=== PATIENT | male | born 1975 | race Caucasian/White ===

== ENCOUNTER 2024-04-22 13:53 | Emergency (ER) | payer BC, OTHER, SELFPAY ==
[2024-04-22 13:59] VITALS: BP 158/102
--- NOTE | 2024-04-22 14:56 | ED.SKININJ ---
HPI-Injury
General
Chief Complaint: Ear Problem
Source: patient
Exam Limitations: none
Time Seen by Provider: 04/22/24 14:23
Nursing documentation reviewed up to this point in time: agreed with
History of Present Illness-Injury
Initial Injury comments:
48 yo male with hx bilateral ear infections, tympanoplasties 15 yrs ago, decreased hearing in both ears L>R, states for past 5 days he's felt 'bubbling' in his right ear with more muffled hearing and some clear yellowish fluid drainage. Went to Pt
[facility] 2 days ago and put on Augmentin 875 BID (has had total of 5 doses).
Last 7:30 p.m. pressure in the ear got worse, he held his nose and blew and felt sudden pain, heard whistling sound and bubbling. When this has happened in the past the pain usually subsides but this time it hasn't. Pain last night was 10/10, took
Benadryl, Motrin, Melatonin and slept about 4 hours. Woke up with blood and pus on his pillow. Pain is still there now /10, comes in waves.
Denies f/c/n/v. Denies headache.
Past History
Past History
ED Past Medical History: GERD, HTN and Other (Hand infection)
Patient has exhibited threatening behavior?: No
PSI?: No
Social History
Tobacco: Non-smoker
Drug: None
Review of Systems
Review of Systems
Allergies reviewed?: Yes
All Other Systems: ROS reviewed and negative except as documented in HPI and ROS
Constitutional: Denies fever
EENT: Reports other (R ear pain and drainage)
ABD/GI: Denies nausea or vomiting
Neurological: Denies headache
Phy Exam
Physical Exam
Physical Exam:
GENERAL: No acute distress. A&Ox3.
CONSTITUTIONAL: Afebrile.
EYES: clear, conjunctivae normal
Neck: Supple
ENMT: moist mucus membranes, Pharynx nl. L TM intact with areas of scarring. R ear canal reddened and raw distally superiorly like an abrasion. No bleeding noted. Clear fluid with bubbles noted R TM as he holds his nose and blows during exam to
show me what he means. Consistent with ruptured TM. No pus noted.
RESPIRATORY: Regular respirations, nonlabored, lungs clear.
CARDIOVASCULAR: Regular rate and rhythm, no murmurs, no rubs.
MUSCULOSKELETAL: Moves with ease. Well perfused.
SKIN: Warm, dry, pink
PSYCH: Normal mood and affect. Well kept, interactive and appropriate
NEUROLOGIC: Awake, alert and oriented. No focal neurological deficits
Course
Vital Signs
Initial and Last Documented VS:
Initial Vital Signs
Temp Pulse Resp BP Pulse Ox
97.5 F 92 16 158/102 98
04/22/24 13:59 04/22/24 13:59 04/22/24 13:59 04/22/24 13:59 04/22/24 13:59
Last Documented Vital Signs
Temp Pulse Resp BP Pulse Ox
97.5 F 92 16 158/102 98
04/22/24 13:59 04/22/24 13:59 04/22/24 13:59 04/22/24 13:59 04/22/24 13:59
MDM/Problems Addressed
Differential Diagnosis Includes:
AOM, AOE, rupture TM,
MDM/Problems Addressed:
48 yo male with hx bilateral ear infections, tympanoplasties 15 yrs ago, decreased hearing in both ears L>R, states for past 5 days he's felt 'bubbling' in his right ear with more muffled hearing and some clear yellowish fluid drainage. Went to Pt
[facility] 2 days ago and put on Augmentin 875 BID (has had total of 5 doses).
Last 7:30 p.m. pressure in the ear got worse, he held his nose and blew and felt sudden pain, heard whistling sound and bubbling. When this has happened in the past the pain usually subsides but this time it hasn't. Pain last night was 03/09, took
Benadryl, Motrin, Melatonin and slept about 4 hours. Woke up with blood and pus on his pillow. Pain is still there now 12/07, comes in waves.
Denies f/c/n/v. Denies headache.
Afebrile, NAD
Clear fluid with bubbles noted R TM as he holds his nose and blows during exam to show me what he means
Referred to ENT
Rx for Tramadol sent to his pharmacy to get him through the weekend.
BP recheck 130/74
*Critical Care Note
Total Time (30-74mins, 75-104mins- exclusive of procedures): Not Applicable
ED Attending Note
-
Portions of this chart may have been created with voice recognition software.� Occasional wrong word or��sound alike� substitutions may have occurred due to the inherent limitations of voice recognition software.
Discharge Plan
Departure
Patient Disposition: Home (Routine Discharge)
Date of Disposition: 04/22/24
Time of Disposition: 14:36
Patient with high blood pressure during this ER visit?: No
Condition: Fair
Discharge Problem:
Rupture of right tympanic membrane, Otitis media
Instructions: Ruptured Eardrum (DC)
Prescriptions:
New
tramadol 50 mg tablet
50 mg PO Q8H PRN (Reason: Pain) Qty: 7 0RF
No Action
lisinopril 10 MG tablet
10 mg PO HS
esomeprazole magnesium [Nexium] 20 MG capsule,delayed release(DR/EC)
20 mg PO HS
amoxicillin-pot clavulanate 1 TABLET tablet
1 tab PO Q12 Qty: 14 0RF
doxycycline hyclate 100 MG capsule
100 mg PO Q12 Qty: 14 0RF
hydrocodone-acetaminophen 1 TABLET tablet
1 - 2 tab PO Q4HPRN PRN (Reason: pain) Qty: 12 0RF
Referrals:
Mass,Asif C., MD [Active] - Follow up in 2-3 days
Activity Restrictions/Additional Instructions:
As we discussed, keep the eardrum protected by keeping a cotton plug in your ear, avoid getting water in the ear
Continue your Augmentin as prescribed
I sent a prescription to your pharmacy for pain medication tramadol to use if Tylenol or ibuprofen does not help
Call the ENT doctor Wednesday morning first thing and make next available appointment, be sure to inform them you are here and we recommended that you be seen as soon as possible
Avoid barotrauma...for example, don't hold your nose and blow
Interventions
Interventions:
*Risk Screen - Suicide Last Done: 04/22/24 13:59
*Neglect/Abuse Screening Last Done: 04/22/24 13:59
*Nursing Disposition Last Done: 04/22/24 15:03
Discharge Date and Time
Discharge Date/Time: 04/22/24 15:06
Print Language: [place]CI[place]
== END 2024-04-22 15:06 | disposition home or self-care (01) ==
LOC: EMR 13:53
PROVIDERS: EMERGENCY PHYSICIAN Student in an Organized Health Care Education/Training Program
DX: H72.91 Unspecified perforation of tympanic membrane, right ear (principal); H66.90 Otitis media, unspecified, unspecified ear
CPT/HCPCS: 99283

== ENCOUNTER 2024-06-25 21:26 | Emergency (ER) | payer BC, OTHER, SELFPAY ==
[2024-06-25 21:28] VITALS: BP 157/105
[2024-06-25 21:45] LABS: % Eosinophils 3.4 % (0-6); % Immature Granulocytes 0.2 % (0-0.5); % Lymphocytes 39.7 % (20.5-51.1); % Monocytes 6.5 % (1.7-9.3); % Neutrophils 49.2 % (42.2-75.2); Absolute Basophils 0.1 10^3/uL (0-0.2); Absolute Eosinophils 0.3 10^3/uL (0-0.7); Absolute Lymphocytes 3.5 10^3/uL (1.2-3.4); Absolute Monocytes 0.6 10^3/uL (0.1-0.6); Absolute Neutrophils 4.3 10^3/uL (1.4-6.5); Hematocrit 42.9 % (39.0-52.0); Hemoglobin 14.8 g/dL (13.0-18.0); Mean Corp Hgb Conc. 34.5 g/dL (33.0-37.0); Mean Corpuscular Hgb 30.3 pg (27.0-31.0); Mean Corpuscular Volume 87.9 fL (80.0-94.0); Mean Platelet Volume 8.3 fL (7.4-10.4); Nucleated Red Blood Cells % 0 % (-); Platelet Count 327 10^3/uL (130-400); Red Blood Cell Count 4.88 10^6/uL (4.70-6.10); Red Cell Dist. Width 12.6 % (11.5-14.5); White Blood Cell Count 8.8 10^3/uL (4.8-10.8)
[2024-06-25 21:46] LABS: Urine Albumin Negative (Neg - Trace); Urine Bilirubin Negative (Negative); Urine Character Clear (Clear); Urine Color Yellow; Urine Glucose Negative (Negative); Urine Ketone Negative (Negative); Urine Leukocyte Negative (Negative); Urine Nitrite Negative (Negative); Urine Occult Blood Negative (Negative); Urine Urobilinogen Negative (Neg - 1+)
[2024-06-25 21:59] LABS: ALT (SGPT) 55 U/L (0-50); AST (SGOT) 34 U/L (17-59); Albumin 4.6 g/dl (3.5-5.0); Alkaline Phosphatase 59 U/L (38-126); Blood Urea Nitrogen 16 mg/dl (9-20); Calcium 9.4 mg/dl (8.4-10.2); Carbon Dioxide 29 mmol/L (22-30); Chloride 103 mmol/L (98-107); Glucose 102 mg/dl (70-99); Lipase 57 U/L (23-300); Potassium 3.9 mmol/L (3.5-5.1); Sodium 139 mmol/L (135-145); Total Bilirubin 0.5 mg/dl (0.2-1.3); Total Protein 7.2 g/dl (6.3-8.2); eGFR > 60.00
[2024-06-25 22:31] VITALS: BMI 36.3
[2024-06-25 22:36] VITALS: BP 135/80
[2024-06-25 23:00] VITALS: BP 121/71
--- NOTE | 2024-06-25 23:20 | ED.GENMED ---
History of Present Illness
General
Chief Complaint: Abdominal Pain
Source: patient
Exam Limitations: none
Time Seen by Provider: 06/25/24 22:18
Nursing documentation reviewed up to this point in time: agreed with
History of Present Illness
History of Present Illness:
48 y/o M with h/o GERD, htn
here with upper abd pain
says that for months he would randomly get a very intense cramp or muscle spasm in his upper abdomen, he could feel alump there; maybe once a month for several months
but then
says that he had N/V/D illness 6 days ago that lasted about 36 hours
it resolved but he started having some upper abd pain, cramping/bloating
he has been able to eat without any nausea/vomiting and has not had any diarrhea
he hasn't really bruno any relief of this pain
he denies fever, chills, back pain, uairnary symptoms
today he had episode of blood with BM; that has happened to him occasionally before and he assumed due t hemorrhoids
no black stool
says he takes nexium for gerd but used to be prescribed something else; he hasn't seen GI in years; never had endscopy
Past History
Past History
ED Past Medical History: GERD, HTN and Other (Hand infection)
Patient has exhibited threatening behavior?: No
PSI?: No
Social History
Tobacco: Non-smoker
Drug: None
Phy Exam
Physical Exam
Physical Exam:
GENERAL: Alert , in no apparent distress
EYE: pupils equal and reactive
NECK: Supple
ENT: o/p clr, mmm.
CARDIAC: Regular rate and rhythm .
LUNGS: Clear breath sounds bilaterally, no acute respiratory distress, no wheezes/rales/rhonchi
ABDOMEN: Soft, mild epigastric tenderness, no masses, nondistended, no r/g, no cvat, normal bowel sounds
NEUROLOGICAL: Alert and oriented, no focal neuro deficits
SKIN: Warm and dry, skin intact.
MUSCULOSKELETAL: No edema, well perfused. neg erasmo's sign
PSYCH: Normal and appropriate interaction.
Course
Orders/Labs/Results
Orders:
Orders
06/25/24 21:36
Complete Blood Count/With Diff Urgent
Comprehensive Metabolic Panel Urgent
Lipase Urgent
06/25/24 21:40
Urine Reflex Culture from UA [Urinalysis Reflex To Culture] Urgent
Date Specimen was Collected: 06/25/24
Time Specimen was Collected: 21:35
06/25/24 23:21
0.9% Sodium Chloride 1000 ml [Nss] 1,000 ml IV BOLUS
HYDROmorphone [Dilaudid] 1 mg IV NOW STA
Pantoprazole [Protonix IV] 40 mg IV NOW STA
06/25/24 23:44
Lactic Acid Urgent
06/26/24 00:00
CT Abd/Pel (IV only)-DH only Urgent
Reason For Exam: upper abd, rlq pain after n/v/d last week;
06/26/24 01:32
Electrocardiogram (*1) Urgent
Reason for Study: Abdominal Pain
EKG- Treatment ONCE
06/26/24 01:33
Ketorolac [Toradol] 15 mg IV NOW STA
06/26/24 01:45
Troponin I Urgent
Abnormal Lab Results
06/25/24
21:36
Absolute Lymphs (auto) 3.5 H 10^3/uL
(1.2-3.4)
Glucose 102 H mg/dl
(70-99)
ALT 55 H U/L
(0-50)
06/25/24 21:36
06/25/24 21:36
Vital Signs
Initial and Last Documented VS:
Initial Vital Signs
Temp Pulse Resp BP Pulse Ox
36.7 C 88 20 157/105 97
06/25/24 21:28 06/25/24 21:28 06/25/24 21:28 06/25/24 21:28 06/25/24 21:28
Last Documented Vital Signs
Temp Pulse Resp BP Pulse Ox
36.7 C 71 16 133/87 99
06/25/24 21:28 06/26/24 02:30 06/26/24 02:30 06/26/24 02:03 06/26/24 00:41
MDM/Problems Addressed
Differential Diagnosis Includes:
Gastritis, pancreatitis, colitis
MDM/Problems Addressed:
48-year-old male with a history of GERD, hypertension presents for epigastric pain and left upper quadrant pain which she has had off-and-on for the past several months lasting only a couple of hours which feels like a spasm or tightness. He says
it would come spontaneously and resolve after couple of hours. He never got it looked at. Last week about 6 days ago he had a nausea vomiting diarrhea illness. That lasted about 36 hours and since then he has had some persistent epigastric pain.
He was more intermittent and now it has been consistent for the last 2 days. He feels like it feels like a tightness in his upper abdomen and he feels like maybe there is a swelling that happens at times. It is not made worse with eating, walking,
breathing. He is not short of breath.
he looked really well initially
mild LUQ pain
mild RLQ pain
labs reviewed, minimal AST elevation
lipase normal
ct ordered
ct resulted; mod stool burdne no other findigns
pt reassessed and hasworse pain again LUQ with some spasm
ekg sinus mitra, no ischemia
trop neg
pt feels better after iv toradol
*Critical Care Note
Total Time (30-74mins, 75-104mins- exclusive of procedures): Not Applicable
ED Attending Note
-
Portions of this chart may have been created with voice recognition software.� Occasional wrong word or��sound alike� substitutions may have occurred due to the inherent limitations of voice recognition software.
Discharge Plan
Departure
Patient Disposition: Home (Routine Discharge)
Date of Disposition: 06/26/24
Time of Disposition: 02:33
Patient with high blood pressure during this ER visit?: No
Condition: Fair
Covid-19: Not Applicable
Discharge Problem:
Abdominal pain, Constipation, Gastritis
Instructions: Constipation, Adult (DC), Gastritis (DC), Abdominal Pain
Prescriptions:
New
pantoprazole [Protonix] 40 mg tablet,delayed release (DR/EC)
40 mg PO DAILY Qty: 14 0RF
No Action
lisinopril 10 MG tablet
10 mg PO HS
esomeprazole magnesium [Nexium] 20 MG capsule,delayed release(DR/EC)
20 mg PO HS
amoxicillin-pot clavulanate 1 TABLET tablet
1 tab PO Q12 Qty: 14 0RF
doxycycline hyclate 100 MG capsule
100 mg PO Q12 Qty: 14 0RF
hydrocodone-acetaminophen 1 TABLET tablet
1 - 2 tab PO Q4HPRN PRN (Reason: pain) Qty: 12 0RF
tramadol 50 mg tablet
50 mg PO Q8H PRN (Reason: Pain) Qty: 7 0RF
Referrals:
NONE,* [Family Provider] -
Activity Restrictions/Additional Instructions:
YOUR CAT SCAN DID NOT SHOW ANY OBVIOUS CAUSES FOR YOUR PAIN
YOU DO HAVE A MODERATE STOOL BURDEN IN YOUR COLON WHICH CAN CAUSE PAIN AND BLOATING
YOU CAN TRY MIRALAX ONCE OR TWICE A DAY FOR 2-3 DAYS TO HELP EMPTY YOU OUT
ALSO INSTEAD OF THE NEXIUM, TRY PANTOPRAZOLE 40 MG IN THE MORNING ON AN EMPTY STOMACH FOR 1-2 WEEKS
FOLLOW UP WITH GI FOR FURTHER EVLAUTION
RETURN FOR: BLACK STOOL, VOMITING, SEVERE PAIN, FEVER, OR ANY CONCERN.
Interventions
Interventions:
*Risk Screen - Suicide Last Done: 06/25/24 21:28
*General Assessment Last Done: 06/25/24 21:28
*Neglect/Abuse Screening Last Done: 06/25/24 21:28
ED- Fall Risk Assessment Last Done: 06/25/24 22:30
*ED COVID-19 Vaccine History Last Done: 06/25/24 21:33
*Nursing Disposition Last Done: 06/26/24 02:49
MX-Fudxas-Ikozcyfuii Assessment Last Done: 06/25/24 22:28
Discharge Date and Time
Discharge Date/Time: 06/26/24 02:50
Print Language: ARABIC
[2024-06-25] MEDS: DILAUDID 1 MG IV (23:40)
[2024-06-25] MEDS: PROTONIX IV 40 MG IV (23:40)
[2024-06-25] MEDS: NSS 1000 IV (23:40)
[2024-06-26] MEDS: TORADOL 15 MG IV (01:46)
[2024-06-26 02:03] VITALS: BP 133/87
[2024-06-26 02:28] LABS: Troponin I < 0.012 ng/ml
== END 2024-06-26 02:50 | disposition home or self-care (01) ==
LOC: EMR 21:26
PROVIDERS: Emergency Medicine; Physician Assistant; EMERGENCY PHYSICIAN Emergency Medicine
DX: K29.70 Gastritis, unspecified, without bleeding (principal); K59.00 Constipation, unspecified; I10 Essential (primary) hypertension; K21.9 Gastro-esophageal reflux disease without esophagitis
CPT/HCPCS: 96374; 96375; 96361; 99284; 74177; 80053; 81003; 83605; 83690; 84484; 85025; 93005; Q9967

== ENCOUNTER 2024-08-13 21:24 | Emergency (ER) | payer BC, OTHER, SELFPAY ==
[2024-08-13 21:28] VITALS: BP 167/107
[2024-08-13 21:48] LABS: % Basophils 0.9 % (0-2); % Eosinophils 3.1 % (0-6); % Immature Granulocytes 0.3 % (0-0.5); % Lymphocytes 27.8 % (20.5-51.1); % Neutrophils 60.9 % (42.2-75.2); Absolute Basophils 0.1 10^3/uL (0-0.2); Absolute Eosinophils 0.2 10^3/uL (0-0.7); Absolute Lymphocytes 1.9 10^3/uL (1.2-3.4); Absolute Monocytes 0.5 10^3/uL (0.1-0.6); Absolute Neutrophils 4.2 10^3/uL (1.4-6.5); Hematocrit 42.1 % (39.0-52.0); Hemoglobin 14.8 g/dL (13.0-18.0); Mean Corp Hgb Conc. 35.2 g/dL (33.0-37.0); Mean Corpuscular Hgb 30.5 pg (27.0-31.0); Mean Corpuscular Volume 86.6 fL (80.0-94.0); Mean Platelet Volume 8.5 fL (7.4-10.4); Nucleated Red Blood Cells % 0 % (-); Platelet Count 302 10^3/uL (130-400); Red Blood Cell Count 4.86 10^6/uL (4.70-6.10); Red Cell Dist. Width 12.3 % (11.5-14.5); White Blood Cell Count 6.9 10^3/uL (4.8-10.8)
[2024-08-13 22:03] LABS: ALT (SGPT) 45 U/L (0-50); AST (SGOT) 34 U/L (17-59); Albumin 4.7 g/dl (3.5-5.0); Alkaline Phosphatase 70 U/L (38-126); Blood Urea Nitrogen 12 mg/dl (9-20); Calcium 9.7 mg/dl (8.4-10.2); Carbon Dioxide 27 mmol/L (22-30); Chloride 102 mmol/L (98-107); Glucose 118 mg/dl (70-99); Potassium 3.9 mmol/L (3.5-5.1); Sodium 138 mmol/L (135-145); Total Bilirubin 0.6 mg/dl (0.2-1.3); Total Protein 7.3 g/dl (6.3-8.2); eGFR > 60.00
[2024-08-13 22:12] LABS: Troponin I < 0.012 ng/ml
--- NOTE | 2024-08-13 22:51 | ED.GENMED ---
History of Present Illness
General
Chief Complaint: Chest Pain
Source: patient
Exam Limitations: none
Time Seen by Provider: 08/13/24 22:50
Nursing documentation reviewed up to this point in time: agreed with
History of Present Illness
History of Present Illness:
48-year-old male with history of HTN, GERD presents stating 'I thought I was having a heart attack.' He states last night his blood pressure was 150/104 and he went to urgent care, he states he used to be on lisinopril and amlodipine but his
wad blanking press adjuster took him off of it after his blood pressure was normal for so long. He asked them at urgent care to renew his lisinopril and amlodipine which they did. He took amlodipine 5 mg yesterday and 5 mg today. This evening he said he felt
pain in his left shoulder, felt short of breath and dizzy, he states there is 'crazy stuff going on at home with my daughter.' at bedside says that things are escalating [id number] at home with her 15-year-old daughter who has a ankle
monitor on because she ran away so many times. She has been very disruptive, most likely has borderline personality and they are very stressed with her situation.
Patient states over the past 2 days she has had intermittent chest pains and sometimes pain in his left shoulder (he states he has chronic left shoulder pain and feels that it is not really any different). Denies N/V/D/C.
Past History
Past History
ED Past Medical History: GERD and HTN
ED Past Surgical History: Orthopedic
Patient has exhibited threatening behavior?: No
PSI?: No
Social History
Tobacco: Non-smoker
Drug: None
Review of Systems
Review of Systems
Allergies reviewed?: Yes
All Other Systems: ROS reviewed and negative except as documented in HPI and ROS
Constitutional: Denies fever
Respiratory: Denies trouble breathing
Cardiac: Reports chest pain and palpitations; Denies diaphoresis or syncope
ABD/GI: Denies abdominal pain, nausea, vomiting or diarrhea
Musculoskeletal: Reports no symptoms
Skin: Reports no symptoms
Neurological: Reports no symptoms
Phy Exam
Physical Exam
Physical Exam:
GENERAL: No acute distress. A&Ox3.
CONSTITUTIONAL: Afebrile.
EYES: clear, conjunctivae normal
ENMT: moist mucus membranes
RESPIRATORY: Regular respirations, nonlabored, lungs clear.
CARDIOVASCULAR: Regular rate and rhythm, no murmurs, no rubs.
GI: Soft, nontender, normal BS
MUSCULOSKELETAL: Moves with ease. Well perfused.
SKIN: Warm, dry, pink
PSYCH: Anxious mood and affect. Well kept, interactive and appropriate
NEUROLOGIC: Awake, alert and oriented. No focal neurological deficits
Scores
Heart Score for Chest Pain Patients
STEMI patient?: Not applicable
Course
Orders/Labs/Results
Orders:
Orders
08/13/24 21:28
Electrocardiogram (*1) Urgent
Reason for Study: Chest Pain
EKG- Treatment ONCE
08/13/24 21:38
CR Chest - 2 Views Urgent
Comment:
Reason For Exam: chest pain
08/13/24 21:39
Complete Blood Count/With Diff Urgent
Comprehensive Metabolic Panel Urgent
Troponin I Urgent
Abnormal Lab Results
08/13/24
21:39
Glucose 118 H mg/dl
(70-99)
08/13/24 21:39
08/13/24 21:39
Vital Signs
Initial and Last Documented VS:
Initial Vital Signs
Temp Pulse Resp BP Pulse Ox
98.3 F 88 20 167/107 99
08/13/24 21:28 08/13/24 21:28 08/13/24 21:28 08/13/24 21:28 08/13/24 21:28
Last Documented Vital Signs
Temp Pulse Resp BP Pulse Ox
98.3 F 74 13 158/101 99
08/13/24 21:28 08/13/24 23:30 08/13/24 23:30 08/13/24 23:20 08/13/24 23:35
MDM/Problems Addressed
Differential Diagnosis Includes:
Anxiety, stress at home, ACS
MDM/Problems Addressed:
48-year-old male with history of HTN, GERD presents stating 'I thought I was having a heart attack.' He states last night his blood pressure was 150/104 and he went to urgent care, he states he used to be on lisinopril and amlodipine but his
wad blanking press adjuster took him off of it after his blood pressure was normal for so long. He asked them at urgent care to renew his lisinopril and amlodipine which they did. He took amlodipine 5 mg yesterday and 5 mg today. This evening he said he felt
pain in his left shoulder, felt short of breath and dizzy, he states there is 'crazy stuff going on at home with my daughter.' at bedside says that things are escalating [id number] at home with her 15-year-old daughter who has a ankle
monitor on because she ran away so many times. She has been very disruptive, most likely has borderline personality and they are very stressed with her situation.
Patient states over the past 2 days she has had intermittent chest pains and sometimes pain in his left shoulder (he states he has chronic left shoulder pain and feels that it is not really any different). Denies N/V/D/C.
EKG NSR
10:15 PM:
CMP normal
CBC normal
Troponin normal
Chest x-ray NAD
11:20 PM
Patient reassured that workup here shows nothing worrisome
Patient remains stable, after talking about the stressful situation at home, he states physically he is feeling a little better
BP remains high, he will start his Lisinopril and continue the Losartan.
He has a wad blanking press adjuster at [facility] and goes to the [facility] and states he will follow up.
says he is not good about follow up and he says he usually goes to when he needs medical care.
Stressed importance of getting BP under control
*EKG
EKG Intrepretation Date: 08/13/24
Interpretation: normal
Heart Rate: 86
Rate: normal
Rhythm: sinus
[place]: normal axis
Interval: normal interval
QRS Pattern: normal QRS
Ischemia: no ischemia
*Critical Care Note
Total Time (30-74mins, 75-104mins- exclusive of procedures): Not Applicable
ED Attending Note
-
Portions of this chart may have been created with voice recognition software.� Occasional wrong word or��sound alike� substitutions may have occurred due to the inherent limitations of voice recognition software.
Discharge Plan
Departure
Patient Disposition: Home (Routine Discharge)
Date of Disposition: 08/13/24
Time of Disposition: 23:39
Patient with high blood pressure during this ER visit?: Yes
Condition: Fair
Discharge Problem:
Anxiety as acute reaction to exceptional stress, Stress at home
Instructions: Anxiety in adults - ED discharge instructions
Prescriptions:
No Action
lisinopril 10 MG tablet
10 mg PO HS
esomeprazole magnesium [Nexium] 20 MG capsule,delayed release(DR/EC)
20 mg PO HS
amoxicillin-pot clavulanate 1 TABLET tablet
1 tab PO Q12 Qty: 14 0RF
doxycycline hyclate 100 MG capsule
100 mg PO Q12 Qty: 14 0RF
hydrocodone-acetaminophen 1 TABLET tablet
1 - 2 tab PO Q4HPRN PRN (Reason: pain) Qty: 12 0RF
tramadol 50 mg tablet
50 mg PO Q8H PRN (Reason: Pain) Qty: 7 0RF
pantoprazole [Protonix] 40 mg tablet,delayed release (DR/EC)
40 mg PO DAILY Qty: 14 0RF
Referrals:
Your, [facility] [Other] - Next open appointment
Activity Restrictions/Additional Instructions:
As we discussed, no sign of a heart attack in your workup here tonight.
Continue the losartan and add the lisinopril and call and make an appointment with either your [facility] doctor or your wad blanking press adjuster at [facility]
Interventions
Interventions:
*Risk Screen - Suicide Last Done: 08/13/24 21:28
*General Assessment Last Done: 08/13/24 21:28
*Neglect/Abuse Screening Last Done: 08/13/24 21:28
*ED- Fall Risk Assessment Last Done: 08/13/24 21:28
*ED COVID-19 Vaccine History Last Done: 08/13/24 21:28
*Nursing Disposition Last Done: 08/13/24 23:48
ED- Cardiac Assessment Last Done: 08/13/24 23:42
Discharge Date and Time
Discharge Date/Time: 08/13/24 23:48
Print Language: PAKISTANI
[2024-08-13 23:18] VITALS: BP 145/101
[2024-08-13 23:20] VITALS: BP 158/101
== END 2024-08-13 23:48 | disposition home or self-care (01) ==
LOC: EMR 21:24
PROVIDERS: Emergency Medicine; EMERGENCY PHYSICIAN Emergency Medicine
DX: F41.1 Generalized anxiety disorder (principal); F43.0 Acute stress reaction; I10 Essential (primary) hypertension; K21.9 Gastro-esophageal reflux disease without esophagitis; Z79.899 Other long term (current) drug therapy
CPT/HCPCS: 99285; 71046; 80053; 84484; 85025; 93005

== ENCOUNTER → 2025-02-19 16:49 | Outpatient (REF) | payer BC, OTHER, SELFPAY | LOC: RAD 16:49 | PROVIDERS: ATTENDING PHYSICIAN Chiropractor | DX: Z01.818 Encounter for other preprocedural examination (principal) | CPT/HCPCS: 70030 ==